=== PATIENT | female | born 1935 | race Asian ===

== ENCOUNTER 2018-11-21 16:49 | Emergency (ER) | payer OTHER, MEDICAID ==
[~2018-11-21] VITALS: Ht 147.3 cm; Wt 31.8 kg
[2018-11-21 16:52] VITALS: BP_SYST 187
--- NOTE | 2018-11-21 16:52 | NUR ---
Patient triaged and placed in ER Bed 6. VSS and patient appears in no acute distress at this time. MD notified of need for ER evaluation.
--- NOTE | 2018-11-21 17:00 | NUR ---
Patient brought in to ER by ambulance at the request of police officers. Patient had many complaints called into police due to her erratic driving, with some reports of patient being slumped over in her car. Patient was brought in for evaluation. Patient is alert and verbal, no signs of distress noted.
--- NOTE | 2018-11-21 17:10 | NUR ---
DR Forte at bedside for ER evaluation
--- NOTE | 2018-11-21 17:25 | NUR ---
Ambulated patient for assessment of balance and gait. Although patient has some abnormal curvature of spine and abnormal posture patient is still able to ambulate well, patient is steady on her feet.
--- NOTE | 2018-11-21 19:15 | NUR ---
Patient given written and verbal discharge instructions and verbalizes understanding. ER MD discussed with patient the results and treatment provided. Patient in stable condition. ID arm band removed. Rx of bacitracin given. Patient educated on pain management and to follow up with PMD. Pain Scale 0/10. Opportunity for questions provided and answered. Medication side effect fact sheet provided.
[2018-11-21 19:22] VITALS: BP_SYST 187
== END 2018-11-21 19:22 | disposition home or self-care (01) ==
LOC: SED 16:49
DX: L03.116 Cellulitis of left lower limb (principal); R03.0 Elevated blood-pressure reading, without diagnosis of hypertension; Z90.710 Acquired absence of both cervix and uterus
CPT/HCPCS: 99283